=== PATIENT | female | born 1975 | race Caucasian/White ===

== ENCOUNTER 2022-01-24 14:36 | Emergency (ER) | payer OTHER, SELFPAY ==
[2022-01-24 14:37] VITALS: BP 159/77; PULSE 107; RESP 16; TEMP 36.7; O2SAT 96; BMI 22.8
--- NOTE | 2022-01-24 14:51 | EKG12_ITS ---
Test Reason : CP Blood Pressure : / mmHG Vent. Rate : 094 BPM Atrial Rate : 094 BPM P-R Int : 128 ms QRS Dur : 090 ms QT Int : 342 ms P-R-T Axes : 061 024 020 degrees QTc Int : 427 ms Normal sinus rhythm Normal ECG Confirmed by DOV DESOUZA, TOMAS ([id number]), story editor JUSTINA CASSIDY ([id number]) on 01/26/2022 12:58:42 P M Referred By: PEPITO Confirmed By:ROSA MONAE MD
--- NOTE | 2022-01-24 14:52 | EDS_ITS ---
HPI History of Present Illness Chief Complaint: Chest Pain Narrative Narrative: Patient presents with chest pain that is radiating from her back. She states she has been battling an upper respiratory infection/cold for the last few days. She has been coughing a lot. This morning at 930, approximately 5 hours ago, she began having pain on the left side of her back below her scapula that radiates towards the front. Is worse with movement and coughing. She also feels pleuritic chest pain. She denies any DVT or PE risk factors. No swelling of her legs. She does states she has a family history of early coronary artery disease in her father who had an RI in his 30s. No significant past medical history in herself. PFSH PFS Home Medications Vitamin B-12 1 tab PO DAILY 07/31/16 [History Last Taken Unknown] cephalexin 500 mg PO Q6 #40 capsule 07/31/16 [Rx Last Taken Unknown] ferrous sulfate 325 mg PO DAILY@0800 07/31/16 [History Last Taken Unknown] oxycodone-acetaminophen 1 - 2 tab PO Q4H PRN PRN #20 tab 07/31/16 [Rx Last Taken Unknown] Allergy/AdvReac Type Severity Reaction Status Date / Time No Known Allergies Allergy Verified 01/24/22 14:39 Social History Smoking Status: Never smoker ROS ROS ED ROS Narrative Constitutional: No fever, no chills. HEENT: No sore throat. No neck pain. No loss of vision. No rhinorrhea. Cardiovascular: Positive left-sided radiating from left back chest pain. No palpitations. No pedal edema. Respiratory: Positive cough, no shortness of breath. Abdominal: No abdominal pain. No nausea. No vomiting. Genitourinary: No dysuria. No hematuria. Musculoskeletal: No myalgias. No arthralgias. Neurologic: No headaches. No dizziness. No lightheadedness. Skin: No rash. No change in color. Psychiatric: No depression. No anxiety. EXAM Physical Exam Narrative Exam Narrative: Afebrile. Vital signs noted. HEENT: Normocephalic. Atraumatic. PERRL, EOMI. Neck soft and supple. No point tenderness or step off. Cardiovascular: Regular rate and rhythm. No murmurs, rubs, or gallops appreciated. Mild tenderness to palpation left back below scapula, no crepitance. Respiratory: No tachypnea. Lungs clear to auscultation bilaterally. Gastrointestinal: Abdomen soft, nontender, with normoactive bowel sounds. No rebound or guarding. Neurological: Awake. Alert. Nonfocal, nonlateralizing. Skin: No rash. Normal color. No pallor. Musculoskeletal: No pedal edema. Full range of motion extremities. Const Vital Signs: 01/24/22 14:37 01/24/22 14:56 Temperature 98.0 F Temperature Source Temporal Pulse Rate 107 H Respiratory Rate 16 Blood Pressure 159/77 H Blood Pressure Mean 104 Pulse Ox 96 Oxygen Delivery Method Room Air Room Air Heart Score History: Slightly/Non-Suspicious ECG: Normal Age: >45 - <65 years Risk Factors: 1 or 2 Risk Factors Score: 2 MDM MDM MDM Narrative Medical decision making narrative: Chest pain work-up was pursued. Her EKG the beats per minute without ectopy or acute ST changes. I will obtain a troponin and a D-dimer along with basic laboratory work and a chest x-ray in 1 view. She was administered aspirin. CBC shows normal white count of 5.5, hemoglobin normal at 14.0. Platelet count normal 312. D-dimer negative. Electrolyte panel grossly unremarkable. High-sensitivity troponin negative at less than 3. Chest x-ray interpreted by myself shows no acute process. Upon repeat examination she thinks the aspirin helped her to take the edge off. I do think that she may be having more musculoskeletal thoracic back pain. She was administered Toradol 15 mg intravenously. I do not feel antibiotics are indicated for her URI. I feel she be discharged safely home with follow-up. Return instructions to the emergency department were reviewed. Disposition is discharged home in stable condition. Lab Data Attestation: I reviewed the patient's lab results. Labs: Laboratory Results - last 24 hr 01/24/22 01/24/22 01/24/22 14:50 14:50 14:50 WBC 5.5 RBC 4.65 Hgb 14.0 Hct 40.7 MCV 87.5 MCH 30.1 MCHC 34.4 RDW Std Deviation 41.2 RDW Coeff of Deandra 12.9 Plt Count 312 MPV 9.6 Immature Gran % (Auto) 0.500 Neut % (Auto) 61.8 Lymph % (Auto) 23.2 Victoria % (Auto) 12.0 H Eos % (Auto) 2.0 Baso % (Auto) 0.5 Absolute Neuts (auto) 3.4 Absolute Lymphs (auto) 1.27 Nucleated RBC % 0 D-Dimer Quant (PE/DVT) < 0.27 L Sodium 136 Potassium 3.8 Chloride 107 Carbon Dioxide 25.0 Anion Gap 4 L BUN 12 Creatinine 0.81 Estim Creat Clear Calc 87.54 Est GFR (MDRD) Af Amer 97 Est GFR (MDRD) Non-Af 80 BUN/Creatinine Ratio 14.8 Glucose 84 Calcium 9.1 Troponin I High Sens B-Natriuretic Peptide 01/24/22 01/24/22 14:50 14:50 WBC RBC Hgb Hct MCV MCH MCHC RDW Std Deviation RDW Coeff of Deandra Plt Count MPV Immature Gran % (Auto) Neut % (Auto) Lymph % (Auto) Victoria % (Auto) Eos % (Auto) Baso % (Auto) Absolute Neuts (auto) Absolute Lymphs (auto) Nucleated RBC % D-Dimer Quant (PE/DVT) Sodium Potassium Chloride Carbon Dioxide Anion Gap BUN Creatinine Estim Creat Clear Calc Est GFR (MDRD) Af Amer Est GFR (MDRD) Non-Af BUN/Creatinine Ratio Glucose Calcium Troponin I High Sens < 3 L B-Natriuretic Peptide 4.0 Radiography Diagnostic Testing: Clinical Impression(s) from Imaging Studies Chest X-Ray 01/24/22 15:00 IMPRESSION: Normal x-ray examination of the chest. Electronically Signed: Sammy Dallas MD at 15:11 EDT , Discharge Plan Triage Chief Complaint: Chest Pain ED Provider: Adrian Umanzor Dx/Rx/DC Orders Clinical Impression: Acute left-sided thoracic back pain, Pleuritic chest pain, URI (upper respiratory infection) Instructions: ED Back Pain (Acute or Chronic), ED Chest Pain, Uncertain Cause, ED URI, Viral, No Abx (Adult) Prescriptions: No Action ferrous sulfate 325 MG tablet 325 mg PO DAILY@0800 RF: 0 Vitamin B-12 1 tab PO DAILY RF: 0 oxycodone-acetaminophen 1 TABLET tablet 1 - 2 tab PO Q4H PRN PRN (Reason: Pain) Qty: 20 RF: 0 cephalexin 500 MG capsule 500 mg PO Q6 Qty: 40 RF: 0 Primary Care Provider: Olya Pelaez Referrals: Olya Pelaez MD [Primary Care Provider] - 3-5 Days if not improving Disposition Disposition: Home, Self Care
[2022-01-24] MEDS: Aspirin 81 MG TAB.CHEW 324 MG PO (15:00)
--- NOTE | 2022-01-24 15:00 | RAD_ITS ---
STUDY: X-RAY CHEST REASON FOR EXAM: Female, 46 years old. Chest pain TECHNIQUE: Single AP portable view of the chest. COMPARISON: None. FINDINGS: EKG electrodes are seen. The lungs are clear and expanded. There is no demonstrated pleural abnormality. Normal size heart. Normal mediastinum and mike. Normal visualized pulmonary arteries. Normal visualized aortic arch and descending thoracic aorta. Normal visualized thoracic spine. Normal visualized ribs, clavicles, and shoulders. There is no demonstrated abnormality of the visualized soft tissue structures of the upper abdomen. RAD/Chest 1 View (Portable) IMPRESSION: Normal x-ray examination of the chest. Electronically Signed: Sammy Dallas MD at 15:11 EDT ,
[2022-01-24 15:21] LABS: Absolute Lymphocyte Count 1.27 X10^3/uL (0.83-4.51); Absolute Neutrophil Count 3.4 X10^3/uL (2.0-7.7); Basophil# 0.03 X10^3/uL; Basophil% 0.5 % (0-1); Eosinophil# 0.11 X10^3/uL; Hematocrit 40.7 % (37-47); Lymphocyte # 1.27 X10^3/ul (0.83-4.51); Lymphocyte % 23.2 % (19-41); Mean Corp Hgb Conc 34.4 g/dL (32-36); Mean Corpuscular Hgb 30.1 pg (27.0-32.0); Mean Corpuscular Volume 87.5 fL (81-99); Mean Platelet Vol. 9.6 fl (6.2-12.0); Monocyte# 0.66 X10^3/uL; NRBC Flagged by Analyzer 0 % (0-5); Neutrophil # 3.38 X10^3/uL (2.7-7.7); Neutrophil % 61.8 % (47-70); Platelet Count 312 K/mm3 (150-450); RBC Distribution Width CV 12.9 % (11.6-14.6); RBC Distribution Width SD 41.2 fl (35.1-43.9); Red Blood Count 4.65 M/mm3 (4.2-5.4); White Blood Count 5.5 K/mm3 (4.4-11.0)
[2022-01-24 15:29] LABS: Anion Gap 4 (5-15); BUN 12 mg/dL (7-18); BUN/Creat Ratio 14.8 RATIO (10-20); Calcium,Total 9.1 mg/dL (8.5-10.1); Chloride 107 mmol/L (98-107); Creatinine, Serum 0.81 mg/dL (0.55-1.02); EST Glomerular Filtration Rate 80 mL/min (>60); Est Glom Filt Rate - Afr Amer 97 mL/min (>60); Estimated Creatinine Clearance 87.54 ml/min; Glucose 84 mg/dL (74-106); Potassium 3.8 mmol/L (3.5-5.1); Sodium Level 136 mmol/L (136-145)
[2022-01-24 15:45] LABS: Troponin-I HS (w/2H Reflex) < 3 pg/mL (3.0-54.0)
[2022-01-24 15:53] LABS: D-Dimer Quantitative (DVT/PE) < 0.27 FEU/ug/m (0.27-0.49)
[2022-01-24] MEDS: Ketorolac 15 MG/ML Vial IV (16:34)
[2022-01-24 16:36] VITALS: BP 126/64; PULSE 79; RESP 18
[2022-01-24 16:37] VITALS: BP 126/64; PULSE 73; RESP 17; O2SAT 98
[2022-01-24 17:14] LABS: Reflex Troponin-HS? (from REC) Y
== END 2022-01-24 16:41 | disposition home or self-care (01) ==
PROVIDERS: Emergency Provider Emergency Medicine; PCP Internal Medicine; Visit Provider Emergency Medicine
DX: J06.9 Acute upper respiratory infection, unspecified (principal); R07.81 Pleurodynia; M54.6 Pain in thoracic spine
CPT/HCPCS: 71045; 80048; 83880; 84484; 85025; 85379; 93005; 96374; 99285; A4216

== ENCOUNTER → 2022-07-31 | Outpatient (CLI) | payer OTHER, SELFPAY ==
--- NOTE | 2022-07-31 08:50 | BRBX_PTH ---
PATIENT: COLTON CANDELARIA LOC: [facility] U#:[id number] AGE/SX: 47/F ROOM: RE07/31/[address]: Dr. Trupti Ramsey MD : 1975 BED: DIS: 07/31/2022 SPEC #: [id number] RECD: 07/31/22 09:35 STATUS: DINA REAnnabella #: [id number] MINE: 07/31/22 08:[address]: Trupti Ramsey DEPT: SURGICAL PATHOLOGY RECD BY: Lo French ENTERED: 07/31/22 12:16 SP TYPE: BREAST BX OTHR DR: Dr. Olya Pelaez MD Tissues: Left breast, NOS Procedures: Surgery Specimen Level IV HEADER OPERATION: Left breast stereotactic biopsy PRE-OP DIAGNOSIS: Left breast calcifications TISSUE SUBMITTED: Left breast core tissue ISCHEMIC TIME: 1 minute FIXATION TIME: 10.5 hours MICROSCOPIC DIAGNOSIS Left breast, stereotactic core biopsy: Hyalinized fibroadenoma with associated microcalcifications. Mild fibrocystic change. AM:loyda 08/01/2022 MICROSCOPIC DESCRIPTION Slides are reviewed. GROSS DESCRIPTION Received in fixative is one container labeled with the patient's name and designated left breast. The specimen consists of multiple elongated fragments of rogers-yellow fibroadipose tissue that in aggregate measure 6 x 3 x 0.3 cm. The entire specimen is submitted in three cassettes. / SJ:loyda 07/31/2022 TC:5 CPT: 41603
--- NOTE | 2022-07-31 11:04 | OP.PCM_ITS ---
Report of Operation Date of Procedure: 07/31/22 Pre-Operative Diagnosis: abnormal calcifications on left breast mammograms Post-Operative Diagnosis: same Surgery/Procedure Performed:: left stereotactic breast biopsy Description of Surgical Findings:: calcifications on left breast mammograms Surgeon: Trupti Ramsey Type of Anesthesia: Local Specimen's removed: left breast tissue Estimated Blood Loss (mL): minimal Description of Procedure: After informed consent was given, the patient was brought into the Breast Biopsy suite. Appropriate time out protocol was followed. The patient was placed in the prone position on the stereotactic biopsy table. The patient?s left breast was then placed in the opening at the head of the biopsy table. A medical charge entry specialist compression mammogram was then obtained in the CC view. The suspicious radiological lesion was thus identified. Stereo pictures of the lesion were then taken for XYZ coordinates. The Mammotome biopsy stylus was then positioned where it would be entering into the patient?s breast. The skin at this site was then cleansed with a surgical skin preparation. The skin and subcutaneous tissues at this site were then infiltrated with 1% xylocaine. A small skin incision was made with an 11 blade scalpel. The biopsy stylus was then positioned into the patient?s breast at the proper coordinates of depth. Using the Mammotome vacuum-assist device, several core samples of breast tissue were obtained. A specimen mammogram was the obtained. It revealed that the abnormal calcifications were within the specimen. I reviewed this personally and concluded that the tissue sampling was adequate. A hemostatic marker clip was then placed into the biopsy cavity and a medical charge entry specialist film revealed that it was properly deployed. The patient was then placed in the supine position and pressure was applied to the breast until no active bleeding was noted. Steristrips were applied to reapproximate the skin. A unilateral mammogram in the CC and MLO view were then taken which revealed that the marker clip was in the same area as the previous suspicious lesion. The patient tolerated the procedure well and was discharged from the Breast Biopsy suite in good condition. Complications none noted
== END | disposition home or self-care (01) ==
LOC: BIRAD 08:24
PROVIDERS: PCP Internal Medicine; Visit Provider Surgery
DX: D24.2 Benign neoplasm of left breast (principal); R92.8 Other abnormal and inconclusive findings on diagnostic imaging of breast; N60.12 Diffuse cystic mastopathy of left breast
CPT/HCPCS: 19101; 19081; 88305; J7050; A4648

== ENCOUNTER 2022-12-20 06:49 | Day surgery (SDC) | payer OTHER, SELFPAY ==
--- NOTE | 2022-11-30 16:00 | PCM.HP.BLA ---
History and Physical Date of Admission: 12/20/22 HPI: The patient is a 47 year old female presenting for pre-operative visit. She is scheduled for laparoscopic assisted hysterectomy with bilateral salpingectomy, for menorrhagia, and intramural and submucosal uterine fibroids. on 12/20/22. Procedure discussed along with risks, benefits and complications. Other alternatives discussed for management. Consent form signed? Yes. ? ? PAST MEDICAL HISTORY PAST MEDICAL HISTORY Diagnosis Date ? Anemia ? ? Intramural, submucous, and subserous leiomyoma of uterus ? ? ? PAST SURGICAL HISTORY PAST SURGICAL HISTORY Procedure Laterality Date ? BX OF BREAST; INCISIONAL Left 07/31/2022 ? COLONOSCOPY ? 09/28/2022 ? repeat in 10 years ? LIG/TRNSXJ FLP TUBE ABDL/VAG APPR UNI/BI ? ? ? Tubal ligation ? PAST SURGICAL HISTORY OF ? 12/07/2016 ? endometrial ablation ? ? ? CURRENT MEDICATIONS Current Outpatient Medications Medication Sig Dispense Refill ? Mefenamic Acid 250 mg cap Take 1 capsule by mouth four times daily as needed (pain). 30 capsule 1 ? cholecalciferol, vitamin D3, (VITAMIN D3 ORAL) Take by mouth once daily. ? ? ? cyanocobalamin (VITAMIN B-12) 1,000 mcg tab Take 1 tablet by mouth once daily. ? 0 ? Ferrous Sulfate 325 mg (65 mg iron) tablet Take 1 tablet by mouth once daily. ? ? ? No current facility-administered medications for this visit. ? ? ALLERGIES: Patient has no known allergies. ? PERSONAL HISTORY: SOCIAL HISTORY Social History ? Tobacco Use ? Smoking status: Never ? Smokeless tobacco: Never Vaping Use ? Vaping Use: Never used Substance Use Topics ? Alcohol use: Yes ? ? Comment: occasiional ? Drug use: No ? FAMILY HISTORY: FAMILY HISTORY FAMILY HISTORY Problem Relation Age of Onset ? other (Other) Mother ? ? cholesterol ? Diabetes Father ? ? Heart Father ? ? A. Fib ? Hypertension Father ? ? Coronary Artery Disease Father 50 ? Lipids Father ? ? Kidney failure Father ? ? Cancer Paternal Grandmother ? ? skin ? Cancer Paternal Grandfather ? ? bone ? Prostate Cancer Paternal Grandfather ? ? ? REVIEW OF SYMPTOMS: GENERAL: denies fevers or chills ENDOCRINOLOGY: has not been on steroids Cardiology : denies palpitations or chest pain Respiratory: denies SOB or cough Hematology: denies history of prolonged bleeding or easy bruising or VTE Allergy: Denies history of personal or family history of allergy to anesthesia ? ? PHYSICAL EXAMINATION: ? VITALS: Last menstrual period 11/01/2022. ? GENERAL: The patient is well nourished, well hydrated in no acute distress. , The patient is oriented to time, place, and person. NECK: Supple. No lynphadenopathy, normal thyroid, no thyromegaly. LUNGS: Clear to auscultation bilaterally. no wheezes, rhonchi or rales HEART: Regular rate and rhythm, Normal heart sounds, and No murmurs or gallops GENITALIA: Normal external genitalia, Urethral meatus normal, Bladder nontender, normal vagina and normal vaginal tone, normal cervix, normal uterus, size and consistency, normal adnexa without masses or tenderness, and perineum WNL ? ? IMPRESSION: menorrhagia, , intramural and submucosal fibroids ? PLAN: The risks/benefits/alternatives and personal involved for the planned LAVH, bilateral salpingectomy were reviewed with the patient. Her questions were answered to her satisfaction and she desires to proceed. Consent was signed. I reviewed with her postop instructions and expectations. ? ? I have reviewed and updated past medical and surgical history, medications and allergies US 11/09/2022:: ? Impression anteverted fibroid uterus that measures 102 mm x 59 mm x 65 mm. The largest fibroids are described below. The larger fundal fibroid appears to be submucosal and compressing into the endometrium <50% (type 2 fibroid most likely) 1. Size 22 mm x 24 mm x 25 mm. Right lateral anterior wall- Subserosal. 2. Size 17 mm x 14 mm x 21 mm. Right lateral posterior wall-Subserosal. 3. Size 39 mm x 32 mm x 36 mm. . Fundal submucosal. The endometrium contains a heterogeneous structure that contains blood flow, this could represent a polyp but other pathology can't be ruled out. this structure measures 2.6cm in greatest dimension. The endometrial thickness is 8.5mm. Both ovaries appear normal. no free fluid in culdesac Assessment & Plan Assessment/Plan (1) Menorrhagia: (2) Intramural uterine fibroid: (3) Submucous uterine fibroid:
[2022-12-10 16:50] LABS: Absolute Lymphocyte Count 1.94 X10^3/uL (0.83-4.51); Absolute Neutrophil Count 2.6 X10^3/uL (2.0-7.7); Basophil# 0.05 X10^3/uL; Basophil% 0.9 % (0-1); Eosinophil# 0.14 X10^3/uL; Eosinophils% 2.6 % (0-5); Hematocrit 38.8 % (37-47); Hemoglobin 12.2 g/dL (12.0-15.0); Lymphocyte # 1.94 X10^3/ul (0.83-4.51); Lymphocyte % 36.3 % (19-41); Mean Corp Hgb Conc 31.4 g/dL (32-36); Mean Corpuscular Volume 89.2 fL (81-99); Monocyte# 0.55 X10^3/uL; Monocyte% 10.3 % (0-10); NRBC Flagged by Analyzer 0 % (0-5); Neutrophil # 2.61 X10^3/uL (2.7-7.7); Neutrophil % 48.8 % (47-70); Platelet Count 299 K/mm3 (150-450); RBC Distribution Width CV 13.3 % (11.6-14.6); RBC Distribution Width SD 43.6 fl (35.1-43.9); Red Blood Count 4.35 M/mm3 (4.2-5.4); White Blood Count 5.4 K/mm3 (4.4-11.0)
[2022-12-10 16:53] LABS: Magnesium 1.9 mg/dL (1.6-2.6)
[2022-12-10 16:59] LABS: Partial Thromboplast Time 28.6 Seconds (24.1-36.2); Prothrombin Time (Protime)PT. 13.3 SECONDS (11.7-14.9)
[2022-12-20] VITALS (9 sets, daily range): BP systolic 97–138; BP diastolic 43–74; PULSE 59–83; RESP 12–16; TEMP 36.2–37.4; O2SAT 97–100; BMI 23.1
--- NOTE | 2022-12-20 07:22 | EKG12_ITS ---
Test Reason : PRE-OP Blood Pressure : / mmHG Vent. Rate : 092 BPM Atrial Rate : 092 BPM P-R Int : 130 ms QRS Dur : 090 ms QT Int : 352 ms P-R-T Axes : 051 019 006 degrees QTc Int : 435 ms Normal sinus rhythm with sinus arrhythmia Normal ECG When compared with ECG of 24-JAN-2022 14:45, No significant change was found Confirmed by SILVIA DESOUZA, IAN ([id number]), acquisitions editor JUSTINA CASSIDY ([id number]) on 12/25/2022 10:58:27 AM Referred By: Kari Moser Confirmed By:IAN VEGA MD
[2022-12-20] MEDS: Lactated Ringers 1,000 ML 40 ML IV (07:30)
[2022-12-20 07:36] LABS: Internal QC Validated? YES +Cl - CLEAR BKGD; Pregnancy, Urine Negative Negative
[2022-12-20] MEDS: Phenazopyridine 95 MG Tablet 190 MG PO (07:43)
[2022-12-20] MEDS: Acetaminophen 500 MG Tablet 1000 MG PO (07:43)
[2022-12-20] MEDS: Magnesium 2 GM for ERAS IV (07:43)
[2022-12-20] MEDS: Scopolamine 1mg/72hr Patch 1 PATCH TD (07:44)
[2022-12-20] MEDS: Celecoxib 200 MG Capsule 400 MG PO (07:44)
[2022-12-20] MEDS: Gabapentin 600 MG Tablet PO (07:44)
[2022-12-20 07:50] LABS: Bedside Glucose 109 mg/dL (74-106)
[2022-12-20] MEDS: Ondansetron 4 MG/2 ML Vial IV (08:55)
[2022-12-20] MEDS: dexAMETHasone 10 MG/ML Vial 8 MG IV (08:55)
[2022-12-20] MEDS: Cefazolin 2 GM in 0.9% Normal Saline 100 ML IV (08:59)
--- NOTE | 2022-12-20 09:00 | HYST_PTH ---
PATIENT: COLTON CANDELARIA LOC: [facility] [place] U#:[id number] AGE/SX: 47/F ROOM: RE12/20/[address]: Dr. Kari Moser MD : 1975 BED: DIS: 12/20/2022 SPEC #: [id number] RECD: 12/20/22 13:09 STATUS: DINA SANCHEZAnnabella #: [id number] MINE: 12/20/22 09:[address]: Kari Moser DEPT: SURGICAL PATHOLOGY RECD BY: Lo French ENTERED: 12/20/22 13:25 SP TYPE: HYSTERECT OTHR DR: MD Dr. Olya Jacome MD Tissues: Uterus, NOS Procedures: Surgery Specimen Level V HEADER OPERATION: ERAS, laparoscopic vaginal hysterectomy, salpingectomy, cysto PRE-OP DIAGNOSIS: Menorrhagia, intramural uterine fibroid, submucous uterine fibroid TISSUE SUBMITTED: Uterus, cervix, bilateral fallopian tubes MICROSCOPIC DIAGNOSIS Uterus, cervix, bilateral fallopian tubes, hysterectomy and bilateral salpingectomy: Cervix ? mild chronic inflammation. Endometrium ? secretory endometrium. Myometrium ? intramural, submucosal and subserosal leiomyomas (largest measuring 4.0 cm in greatest dimension). Right fallopian tube ? focal changes consistent with hematosalpinx. Left fallopian tube - no pathologic diagnosis. Paratubal cyst. SJ:rg 12/21/2022 MICROSCOPIC DESCRIPTION Slides are reviewed. GROSS DESCRIPTION Received in fixative is one container labeled with the patient's name and designated uterus, cervix and bilateral fallopian tubes. The specimen consists of a hysterectomy specimen consisting of uterus with cervix and attached portion of right fallopian tube and detached segment of left fallopian tube and also detached fragments of fallopian tubes consistent with fimbrial ends. The uterus with cervix weighs 224 gm and measures 11.0 x 9.0 x 8.0 cm. A few subserosal nodules are noted. The serosal surface is rogers, glistening. The ectocervical mucosa is unremarkable. The external os is oval and patulous in contour. The endometrial cavity is saucer-shaped and measures 5.0 cm in length and up to 3.0 cm in width. A submucosal nodular mass is also present measuring 4.0 cm in greatest dimension. Endometrium us rogers glistening and measures 0.1 cm in thickness. Sections through the uterine wall reveal additional intramural and subserosal nodular masses. The submucosal mass is the largest in size. Sections of these masses reveal rogers whorled cut surfaces without areas of hemorrhage, necrosis or cystic degeneration. The uninvolved uterine wall measures up to 2.5 cm in thickness. Portion of attached right fallopian tube measures 3.0 cm in length and up to 1.0 cm in diameter. The fallopian tube is filled with hemorrhagic fluid. A small portion of the attached left fallopian tube is also noted measuring 1.0 cm in diameter and 1.0 cm in length. Detached portion of left fallopian tube measures 2.5?cm in length and 1.0 cm in diameter. Sections do not reveal any mass lesion. Detached portion of fallopian tube consisting of fimbrial end measuring in aggregate 3.5 x 3.0 x 0.6 cm. Two paratubal cysts are also present measuring 0.5 cm in greatest dimension. Set Builder sections are submitted in 13 cassettes as follows: 1??anterior cervix, 2 - posterior cervix, 3 & 4 - anterior uterine wall, 5-7 - posterior uterine wall, 8??largest submucosal nodular mass, 9 - second largest nodular mass, 10??smaller nodular masses, 11??right fallopian and portion of detached fimbrial end, 12 - attached portion of left fallopian tube and detached portion of left fallopian tube and detached fimbrial end, 13??fimbrial end and paratubal cysts. Detached fimbrial ends are submitted in entirety. / CORTNEY:loyda 12/20/2022 TC:1 CPT: 94252
--- NOTE | 2022-12-20 09:14 | DCINST_ITS ---
Discharge Instructions Diet Discharge Diet: No restrictions Activity Discharge Activity: May Not Drive (for 7-10 days), May Shower (12/20/2022) and May Take a Tub Bath (in 6 weeks) May resume sexual activity in: 6 weeks Lifting Restrictions: 15 lbx x 6 weeks Dressing / Incision Call your doctor if your incision/area has: Continuous Slow Oozing, Sudden Increased Bleeding and Foul Smelling Discharge Call your doctor if you observe: Fever of 101 or Higher, Using more than 1 pad per hour and Uncontrolled pain Remove Dressing in: leave until fall off (Your incisions have skin glue, leave it on until it falls off or 10 days at minimum. It can get wet.) Cleanse incision/area with: Soap & Water Follow Up Care Please Follow Up With: Kari Moser MD When: 1-2 and 6 weeks or as needed. [phone] Test Results: Test results from this visit will be discussed in further detail at your follow- up appointment, if applicable. Discharge Plan Admission Primary Reason for Your Visit: Hysterectomy Attending Provider: Kari Moser Primary Care Provider: Olya Pelaez Consulting Providers: Demetrio Robledo Discharge Orders/Prescriptions Prescriptions: New ibuprofen [ibuprofen] 600 MG tablet 600 mg PO Q6H PRN (Reason: Pain) 20 Days Qty: 60 1RF oxycodone 5 MG tablet 5 mg PO Q6H PRN PRN (Reason: severe pain) 7 Days Qty: 10 0RF Continued ferrous sulfate 325 MG tablet 325 mg PO DAILY@0800 Vitamin B-12 1 tab PO DAILY psyllium seed (sugar) Powder 2 tsp PO TID cholecalciferol (vitamin D3) [Vitamin D3] 25 mcg (1,000 unit) Tablet 25 mcg PO DAILY Probiotic 10 billion cell Capsule 10,000 mmu cells PO DAILY Referrals / Follow Up: Olya Pelaez MD [Primary Care Provider] - Disposition Disposition (needs filled in before D/C Order can be placed): Home, Self Care
[2022-12-20] MEDS: Bupivacaine 0.5% PF 10 ML VIAL (10:32)
[2022-12-20] MEDS: Lidocaine 1%/Epi 1:200 (30ml) 30 ML AMPUL (10:33)
--- NOTE | 2022-12-20 10:40 | OP.PCM_ITS ---
Problems Associated Problem List Diagnoses (1) Intramural uterine fibroid: (2) Submucous uterine fibroid: (3) Menorrhagia: Report of Operation Date of Procedure: 12/20/22 Pre-Operative Diagnosis: menorrhagia, fibroids Post-Operative Diagnosis: SAME Surgery/Procedure Performed:: LAVH, bilateral salpingectomy and cystoscopy Description of Surgical Findings:: normal cervix and vagina, normal ovaries, tubes with evidence of previous tubal, multiple intramural/submucosal fibroids Surgeon: Kari Moser efficiency engineer: [place] efficiency engineer: Mariano mullins [id number] Type of Anesthesia: General Anesthesiologist: Manuel Vail Special Medications: none Specimen's removed: bilateral tubes, uterus and cervix Drains: none Estimated Blood Loss (mL): 30 Fluids Replaced: 1200 Description of Procedure: The patient was taken to the operating room where she was prepped and draped in the dorsal lithotomy position. Her arms were tucked to the side and padded and her legs were placed in the yellowfin stirrups. Care was taken to ensure that she was placed in a neurologically safe and neutral position. A weighted speculum was placed in the vagina and the anterior lip of the cervix was grasped with a single-tooth tenaculum. The uterus sounded to 10 centimeters. The ZUMI uterine manipulator was placed and secured. The Heller catheter was placed to straight drain. Attention was turned to the abdominal portion of the case. Before skin incisions were made they were infiltrated with 0.5% Marcaine solution for local anesthetic. A 5 mm intraumbilical incision was made and while tenting the anterior abdominal wall up with towel clamps a 5 mm blade less trocar and sleeve were advanced directly into the peritoneal cavity. Peritoneal placement was confirmed with the laparoscope the pneumoperitoneum was created, and the underlying abdominal contents were intact. The patient was placed in Trendelenburg and the above findings were noted. Right and left lateral 5 mm trochars were placed under direct visualization without difficulty. The antimesenteric portion of the tube was clamped sealed and transected serially on both sides with the LigaSure device. The round ligaments were clamped sealed and transected and a window was made in the peritoneum. The utero-ovarian ligaments were then clamped, sealed and transected with the LigaSure device and the pedicles were hemostatic The bladder flap was dissected down with the LigaSure device and blunt dissection and the uterine arteries were then skeletonized. The uterine arteries were clamped, sealed and transected on both sides with the LigaSure device. At this point the pedicles were all examined and found to be hemostatic. Attention was turned to the vaginal portion of the case. 1% lidocaine with dilute epinephrine solution was used to infiltrate the anterior vaginal epithelium over the cervix. An incision was made around the entire cervix through the vaginal epithelium and the vaginal epithelium was dissected back with blunt sharp dissection. The anterior colpotomy incision was made. The posterior colpotomy was then made sharply. The peritoneum was tagged to the posterior vaginal cuff. The uterosacral ligaments were clamped, transected and suture-ligated. The uterine arteries were then clamped, transe cted and suture-ligated. There is a small amount of peritoneum on each side was then clamped, transected and suture-ligated and the pedicles were hemostatic. The uterus was brought out through the vaginal opening. A modified Flaherty's suture was placed with 2-0 PDS. He was placed to the posterior vaginal cuff reefed across the posterior perineum through the uterosacral ligament, back across the posterior peritoneum through the other uterosacral ligament and then back out through the vaginal cuff. The vaginal cuff was then closed in a horizontal fashion with interrupted 0 Vicryl [id number] sutures. Care was taken to secure the vagina to the uterosacral ligaments. The modified Flaherty's suture was secured down and the vaginal length was 8 cm. Excellent support of the cuff was noted. Excellent hemostasis was noted. Otoscopy was then performed in the usual fashion. The bladder was intact. There is no focal abnormalities noted. Both ureteral jets were identified. The bladder was emptied and the instruments removed. A sponge stick was placed in the vagina to help place traction against the vaginal cuff. The laparoscope was reinserted into the abdomen and the pneumoperitoneum was re- created. The pedicles were reexamined and found to be hemostatic. The vaginal cuff was hemostatic. The right and left lateral ports were taken out and the sites were hemostatic. The pneumoperitoneum was released and even under low pressure there was no bleeding of any of the pedicles are vaginal cuff. The umbilical port was removed. The umbilical skin incisions were closed with Monocryl suture and skin glue by Dr. Wild. The vaginal instruments were removed by me and a vaginal sweep was completed by me. The surgery was performed by me with assistance other than the portions dictated as above. There were no qualified residents available for this procedure. All sponge lap and needle counts were correct and the patient was transferred to the recovery room in stable condition. Grafts/Implants Used: none Procedure Start Time: 09:24 Procedure Stop Time: 10:37 Complications none Admit VTE Documentation VTE Present on Admission: No VTE Mechan Device Prophylaxis: SCD's VTE Pharm Prophylaxis ordered?: No Reason prophylaxis not ordered:: Procedure Not Indicated
[2022-12-20] MEDS: Lactated Ringers @ 70 MLS/HR 70 ML IV (12:08)
== END 2022-12-20 14:06 | disposition home or self-care (01) ==
LOC: SDC 06:49 → AC 06:50
PROVIDERS: Anesthesiology; PCP Internal Medicine; Referring Provider Obstetrics & Gynecology; Visit Provider Obstetrics & Gynecology
PROC: 0UT9FZZ Resection of Uterus, Via Natural or Artificial Opening With Percutaneous Endoscopic Assistance (ICD-10-PCS; CPT 58552; principal; 2022-12-20 08:35)
DX: D25.1 Intramural leiomyoma of uterus (principal); D64.9 Anemia, unspecified; Z80.42 Family history of malignant neoplasm of prostate; N92.0 Excessive and frequent menstruation with regular cycle; K21.9 Gastro-esophageal reflux disease without esophagitis; Z86.16 Personal history of COVID-19
CPT/HCPCS: 58552; 00944; 36415; 81025; 82962; 83735; 85025; 85610; 85730; 86850; 86900; 86901; 88307; 93005; J7120; J2405

== ENCOUNTER → 2024-08-19 | Outpatient (CLI) | payer OTHER, SELFPAY | END | disposition home or self-care (01) | LOC: CVS 09:42 | PROVIDERS: PCP Internal Medicine; Referring Provider Internal Medicine Cardiovascular Disease; Visit Provider Internal Medicine Cardiovascular Disease | DX: R00.2 Palpitations (principal); R07.9 Chest pain, unspecified | CPT/HCPCS: 93306 ==

== ENCOUNTER → 2024-09-18 | Outpatient (CLI) | payer OTHER, SELFPAY ==
--- NOTE | 2024-09-18 15:24 | STRESSREP ---
Stress Test Report Exercise stress test. 49-year-old lady with a history of chest pain Stress protocol: Resting EKG demonstrates normal sinus rhythm with a rate of 76 bpm resting blood pressure is 118/84 mmHg. The patient exercised according to the regular Jesse protocol for a total duration of 6 minutes and 11 seconds attaining a maximum heart rate of 181 bpm which was 105% of maximum predicted heart rate; the maximum workload was 7.5 metabolic equivalents. At rest there were no ST or T wave changes noted to suggest ischemia and at peak exercise upsloping ST changes only were noted which did not meet the criteria for ischemia. No clinical angina was noted the test was terminated due to the target heart rate being achieved/fatigue. The peak blood pressure was 162/68 mmHg. Rate-pressure product was 26,700. Conclusion: Exercise stress test with no EKG criteria for ischemia at a moderate workload
== END | disposition home or self-care (01) ==
LOC: CVS 09:37
PROVIDERS: PCP Internal Medicine; Referring Provider Physician Assistant Medical; Visit Provider Physician Assistant Medical
DX: R07.9 Chest pain, unspecified (principal)
CPT/HCPCS: 93017